=== PATIENT | male | born 1940 | race Caucasian/White ===

== ENCOUNTER → 2017-07-02 | Outpatient (CLI) | payer OTHER, MEDICARE ==
[~2017-07-02] MED LIST: AMBI10TA PO; BENI40TA33 PO; CART240C4 PO; COQ-100C5 PO; COUM5TAB PO; CYMB30CA PO; DIAZ10TA PO; DIAZ5 PO; FLEC1TAB8 PO; GLUCTAB PO; METF500T PO; MULT-65 PO; OMEGCAP PO; OMEP20TA PO; OXYC-360 PO; OXYC1TAB35 PO; PRAV40TA PO; TAMS0.4C4 PO; VALS160T6 PO
[2017-07-02 12:05] LABS: HEMATOCRIT 47.3 % (39.0-51.0); MEAN CELL VOLUME 79.5 FL (80.0-100.0); MEAN CORPUSCULAR HEMOGLOBIN 25.3 PG (27.0-34.0); MEAN CORPUSCULAR HGB CONC 31.8 % (32.0-36.0); PLATELET COUNT 234 TH/MM3 (150-450); RED BLOOD COUNT 5.95 MIL/MM3 (4.50-5.90); RED CELL DISTRIBUTION WIDTH 20.7 % (11.6-17.2); REVIEW FLAG FINAL; WHITE BLOOD COUNT 9.2 TH/MM3 (4.0-11.0)
--- NOTE | 2017-07-02 14:27 | EKG ---
Date Performed: 07/02/2017 Time Performed: 11:40:47 PTAGE: 77 years EKG: Sinus rhythm WITH FIRST DEGREE AV BLOCK ABNORMAL ECG PREVIOUS TRACING : 08/08/2009 09.48 Compared to prior tracing no significant change DOCTOR: Neli Weber Interpretating Date/Time 07/02/2017 14:25:58
== END ==
LOC: CPRE 11:13
PROVIDERS: ATTEND Specialist
DX: Z01.810 Encounter for preprocedural cardiovascular examination (principal); Z01.812 Encounter for preprocedural laboratory examination; J32.0 Chronic maxillary sinusitis; J32.1 Chronic frontal sinusitis; J32.2 Chronic ethmoidal sinusitis; J34.2 Deviated nasal septum; J34.3 Hypertrophy of nasal turbinates; R94.31 Abnormal electrocardiogram [ECG] [EKG]
CPT/HCPCS: 36415; 85027; 93005

== ENCOUNTER → 2017-07-03 | Day surgery (SDC) | payer MEDICARE, OTHER ==
--- NOTE | 2017-07-02 19:18 | MH ---
cc: MARK CALDERON DATE OF ADMISSION 07/03/2017 HISTORY A 77-year-old gentleman with chronic sinusitis and nasal obstruction for nasal sinus surgery. PAST MEDICAL HISTORY 1. Notable for [id number] diabetes. 2. Hypertension. ALLERGIES NO KNOWN DRUG ALLERGIES. REVIEW OF SYSTEMS Unremarkable. FAMILY HISTORY Unremarkable. SOCIAL HISTORY Unremarkable. PHYSICAL EXAMINATION GENERAL: A well-appearing patient no acute distress noted. HEENT: Exam reveals septal deviation, mucopurulent secretion. Polyps in the left middle meatus. LUNGS: Clear. HEART: Regular rate and rhythm. ABDOMEN: Soft and nontender. EXTREMITIES: Without cyanosis, clubbing or edema. NEUROLOGIC: Alert, oriented, nonfocal neurologic exam. IMPRESSION A patient with chronic sinusitis, nasal obstruction for nasal sinus surgery. Instructed in the method of surgery and possible complication include anesthetic complications cardiac difficulty, pulmonary difficulty, stroke, or even . Surgical complications bleeding, infection, risk of injury to orbit including blindness and diplopia, risk of injury to brain including CSF leak, brain abscess, meningitis or even . The patient appeared to agree, accept and understand above-mentioned risks and benefits. In addition no guarantees or warranties regarding outcome were given. We will therefore proceed with surgery. MD PHILOMENA Lang/ANETTE /6:39 PM /7:11 PM
[~2017-07-03] VITALS: Ht 188 cm; Wt 132.5 kg
[~2017-07-03] MED LIST changes: +*ONDANSETRON 4 MG VIAL PERIprocedural Use ONLY ONE; +ACETAMINOPHEN 1000 MG/100 ML 100 ML IV ONE; +ACETAMINOPHEN/HYDROcodone 325 MG/7.5 MG TAB ONE; +ACETAMINOPHEN/HYDROcodone 325 MG/7.5 MG TAB PO PRN; -BENI40TA33 PO; -CART240C4 PO; +CHLORHEXIDINE GLUCONATE 2 % 1 PACK (2 CLOTHS) TOPICAL PRN; -COUM5TAB PO; +DEXAMETHASONE SOD PHOS 4 MG/ML VIAL ONE; -DIAZ5 PO; +DO NOT ADM ANY ANTICOAGULANT DRUGS PRN; +EPINEPHRINE 0.1% NASAL ONE; +EPINEPHrine HCL (1:1000) 30 MG/30 ML VIAL ONE; +ESMOLOL HCL 100 MG/10 ML VIAL IV ONE; +FAMOTIDINE 20 MG/2 ML VIAL ONE; -GLUCTAB PO; +GLYCOPYRROLATE 1 MG/5 ML SYRINGE IV PUSH ONE; +INSULIN HUMAN REGULAR 1,000 UNITS/10 ML VIAL SQ PRN; +LACTATED RINGER'S 1000 ML IV PRN; +LIDOCAINE 2%/EPINEPHrine PF 1:200,000 20ML SDV ONE; +LIDOCAINE HCL 1% PF 5 ML AMPULE OTHER ONE; +METOPROLOL TARTRATE 25 MG TAB PO PRN; +MIDAZOLAM HCL 2 MG/2 ML VIAL IV ONE; +MORPHINE SULFATE 4 MG/ML INJ IV PUSH PRN; +NEOSTIGMINE 3 MG/3 ML SYR IV ONE; +ONDANSETRON HCL 4 MG/2 ML VIAL IV PUSH ONE; +ONDANSETRON HCL 4 MG/2 ML VIAL IV PUSH PRN; -OXYC-360 PO; +PHENYLEPH/NS 1000 MCG/10 ML SYR IV ONE; +POVIDONE IODINE 5% (ANTISEPSIS KIT) 4 APPLICATIONS EACH NARE PRN; +PROPOFOL 200 MG/20 ML AMP IV ONE; +ROCURONIUM INJ 50 MG/5 ML SYRINGE IV PUSH ONE; +SODIUM CHLORID 0.9% 500 ML IV PRN; +ceFAZolin 1,000 MG/NS 100 ML IV SCH
--- NOTE | 2017-07-03 13:26 | MP ---
cc: MARK CALDERON DATE OF SURGERY 07/03/2017 PREOPERATIVE DIAGNOSIS Chronic sinusitis, turbinate hypertrophy. PROCEDURE Left frontal endoscopic sinusotomy, left endoscopic anterior-posterior ethmoidectomy, left endoscopic maxillary antrostomy with removal of tissue, bilateral inferior turbinectomy, submucous resection. ANESTHESIA General anesthesia ESTIMATED BLOOD LOSS 150 cc COMPLICATIONS No complications. OPERATING SURGEON Dr. Calderon OPERATION FOLLOWS The patient was prepped and draped in the usual fashion. 1% Xylocaine with 100,000 epinephrine injected into nasal septum, left middle meatus. 1:1000 adrenaline soaked pledgets placed and then removed. Biopsy was taken under endoscopic visualization of polypoid tissue in the left middle meatus. Microdebrider was used to clear the left middle meatus of polypoid tissue in addition to anterior-posterior ethmoidectomy, frontal sinus recess dissection and enlargement of maxillary ostium with removal of tissue. All of this was performed with microdebrider under endoscopic visualization taking care not to injure the orbit or the cranial vault. An attempt at balloon sinuplasty was performed as well on the left side with moderate success. Once the left middle meatus was cleared of polypoid debris, the anterior posterior ethmoidectomy performed. The frontal sinus recess dissection with the microdebrider as well as the maxillary antrostomy, a Telfa splint placed in the middle meatus. Using the Coblator probe, bilateral significant reduction of turbinate tissue was performed with the Coblator probe, multiple insertions with power level IV. Mild bleeding was noted and a Nasacort dressing placed in the left nostril. The patient tolerated the procedure well. MD PHILOMENA Lang/HALEY /11:14 AM /1:14 PM
[2017-07-03 13:31] VITALS: BP 110/93; PULSE 98; RESP 18; O2SAT 97
== END | disposition home or self-care (01) ==
LOC: HSDC 07:47
PROVIDERS: ATTEND Specialist
DX: J32.9 Chronic sinusitis, unspecified (principal); J34.3 Hypertrophy of nasal turbinates; J33.9 Nasal polyp, unspecified; E11.9 Type 2 diabetes mellitus without complications; I10 Essential (primary) hypertension; E78.5 Hyperlipidemia, unspecified; I48.0 Paroxysmal atrial fibrillation; K21.9 Gastro-esophageal reflux disease without esophagitis; F32.9 Major depressive disorder, single episode, unspecified; F41.9 Anxiety disorder, unspecified; E66.9 Obesity, unspecified; Z68.37 Body mass index [BMI] 37.0-37.9, adult; Z79.84 Long term (current) use of oral hypoglycemic drugs; Z79.899 Other long term (current) drug therapy
CPT/HCPCS: 00160; 30140; 31255; 31267; 31276; 87015; 87070; 87077; 87102; 87116; 87186; 87205; 87206; 88304; J0131; J0171; J0690; J1100; J2405; J7120; J2250; J2370; J2710; J3010